=== PATIENT | female | born 1960 | race Caucasian/White ===

== ENCOUNTER 2018-08-14 15:02 | Inpatient (IN) | payer OTHER ==
[~2018-08-14] VITALS: Ht 157.5 cm; Wt 70.3 kg
[2018-08-14] MEDS ORDERED: ENALAPRIL MALEA10 MG PO (15:15)
== END 2018-08-18 10:05 | DRG 331 ==
LOC: O/R 08-15 06:15 → SURG 08-15 06:15 → SURH 08-15 12:30 → EDBD 08-15 12:30 → SURG 08-15 16:21
PROVIDERS: Colon & Rectal Surgery
PROC: 0DBU4ZZ Excision of Omentum, Percutaneous Endoscopic Approach (ICD-10-PCS; 2018-08-15)
PROC: 0DTF4ZZ Resection of Right Large Intestine, Percutaneous Endoscopic Approach (ICD-10-PCS; 2018-08-15)
PROC: 07TC4ZZ Resection of Pelvis Lymphatic, Percutaneous Endoscopic Approach (ICD-10-PCS; principal; 2018-08-15 05:00)
DX: D12.0 Benign neoplasm of cecum (principal); I10 Essential (primary) hypertension

== ENCOUNTER 2019-09-28 06:10 | Day surgery (SDC) | payer OTHER ==
[~2019-09-28 06:10] MED LIST: ENALAPRIL MALEA10 MG PO
== END 2019-09-28 12:41 | disposition home or self-care (01) ==
LOC: AMB-ENDOS 06:10
DX: D12.0 Benign neoplasm of cecum (principal); K64.1 Second degree hemorrhoids